=== PATIENT | female | born 1990 | race American Indian/Alaskan Native ===

== ENCOUNTER 2018-11-06 15:40 | Emergency (ER) | payer SELFPAY ==
[2018-11-06 15:53] VITALS: BP 148/79
--- NOTE | 2018-11-06 17:16 | Emergency Department Report ---
ED Female HPI - General Chief complaint: Urogenital-Female Stated complaint: VAGINAL DISCHARGE Time Seen by Provider: 11/06/18 16:53 Source: patient Mode of arrival: Ambulatory Limitations: No Limitations - History of Present Illness Initial comments: This is a 28-year-old female presents to the complaining of malodorous vaginal discharge has been going on for about 2 weeks. Patient states the past couple of days her vaginal discharge has gotten worse, she describes it as yellow, thick with vaginal itching. She states last menstrual period was October 17 2018. Patient reports being sexually active. She denies pelvic pain, fever, nausea vomiting, abdominal pain, dysuria MD Complaint: vaginal discharge -: Gradual, week(s) (2) Location: labia Severity: moderate Severity scale (0 -10): 5 Are you Now?: No Last Menstrual Period: 10/17/18 EDC: 07/24/19 Associated Symptoms: vaginal discharge. denies: abdominal pain, nausea/vomiting, dysuria, rash - Related Data Previous Rx's Medication Instructions Recorded Last Taken Type Fluconazole [Diflucan] 150 mg PO ONCE #1 tablet 11/06/18 Unknown Rx Allergies Allergy/AdvReac Type Severity Reaction Status Date / Time No Known Allergies Allergy Unverified 11/06/18 15:53 ED Review of Systems ROS: Stated complaint: VAGINAL DISCHARGE Other details as noted in HPI Comment: All other systems reviewed and negative ED Past Medical Hx - Past Medical History Previous Medical History?: No - Surgical History Past Surgical History?: No - Social History Smoking Status: Current Every Day Smoker Substance Use Type: Marijuana - Medications Home Medications: Home Medications Medication Instructions Recorded Confirmed Last Taken Type Fluconazole [Diflucan] 150 mg PO ONCE #1 tablet 11/06/18 Unknown Rx ED Physical Exam - General Limitations: No Limitations General appearance: alert, in no apparent distress - Head Head exam: Present: atraumatic, normocephalic - Eye Eye exam: Present: normal appearance - ENT ENT exam: Present: mucous membranes moist - Neck Neck exam: Present: normal inspection - Respiratory Respiratory exam: Present: normal lung sounds bilaterally. Absent: respiratory distress - Cardiovascular Cardiovascular Exam: Present: regular rate, normal rhythm. Absent: systolic murmur, diastolic murmur, rubs, gallop - GI/Abdominal GI/Abdominal exam: Present: soft, normal bowel sounds. Absent: distended, tenderness, guarding - External exam: Present: normal external exam. Absent: erythema, swelling Speculum exam: Present: vaginal discharge (malodorous, green), cervical discharge Bi-manual exam: Absent: cervical motion tendernes, adnexal tenderness, uterine enlargement, uterine tenderness - Extremities Exam Extremities exam: Present: normal inspection - Back Exam Back exam: Present: normal inspection - Neurological Exam Neurological exam: Present: alert, oriented X3 - Psychiatric Psychiatric exam: Present: normal affect, normal mood - Skin Skin exam: Present: warm, dry, intact, normal color. Absent: rash ED Course Vital Signs 11/06/18 15:49 Temperature 97.8 F Pulse Rate 94 H Respiratory 16 Rate Blood Pressure 148/79 O2 Sat by Pulse 97 Oximetry ED Medical Decision Making - Medical Decision Making 28-year-old male presents with STD . ED course: Urinalysis and gonorrhea and Chlamydia cultures obtained. Urinalysis positive for leukorrhea Patient received 250 mg of Rocephin, azithromycin 1 g, Flagyl 2 g. Wet prep positive for trichomoniasis Discussed with patient STD due to exposure. Discussed with patient findings and treatment Discussed prophylaxis treatment patient is to abstain from sex 7-10 days as treatment. Discussed patient partner knowledge and treatment. Discussed the follow-up with the health department for further STD testing. Patient's alert and oriented times 3. Vital signs are normal patient is in no acute discharge. Patient will be discharged home with instructions. Critical care attestation.: If time is entered above; I have spent that time in minutes in the direct care of this critically ill patient, excluding procedure time. ED Disposition Clinical Impression: Trichomonal vaginitis, Vaginitis Disposition: -01 TO HOME OR SELFCARE Is pt being admited?: No Does the pt Need Aspirin: No Condition: Stable Instructions: Sexually Transmitted Diseases (ED), Safe Sex (ED), Trichomoniasis (ED), Bacterial Vaginosis (ED) Additional Instructions: Make sure to follow up with the primary care physician as discussed. Take all your medications as you've been prescribed. If you have any worsening symptoms or develop new symptoms please return to ED immediately. Prescriptions: Fluconazole [Diflucan] 150 mg PO ONCE #1 tablet Forms: Work/School Release Form(ED) Time of Disposition: 18:53
[2018-11-06 18:14] LABS: Bilirubin,Urine NEG (Negative); Blood,Urine SM (Negative); Color,Urine Yellow (Yellow); Mucus,Urine 1+ /HPF; Protein,Urine <15 mg/dL mg/dL (Negative)
[2018-11-06 18:29] LABS: HCG Qualitative,Urine Negative (Negative)
[2018-11-06] MEDS ORDERED: ZITHROMAX PO ONE (18:36)
[2018-11-06] MEDS ORDERED: ROCEPHIN IM ONE (18:36)
[2018-11-06] MEDS ORDERED: FLAGYL PO ONE (18:36)
[2018-11-06] MEDS ORDERED: XYLOCAINE 1% MPF 5 mL INFILTRATI ONE (18:36)
== END 2018-11-06 20:02 | disposition home or self-care (01) ==
LOC: ED 15:40
DX: A59.01 Trichomonal vulvovaginitis (principal); N76.0 Acute vaginitis; F17.200 Nicotine dependence, unspecified, uncomplicated; F12.10 Cannabis abuse, uncomplicated
CPT/HCPCS: 81001; 81025; 87210; 87591; 96372; 99284; J0696

== ENCOUNTER 2018-12-23 10:39 | Emergency (ER) | payer BC, OTHER ==
--- NOTE | 2018-12-23 11:56 | Emergency Department Report ---
ED Dysuria HPI - HPI Chief Complaint: Urogenital-Female Stated Complaint: VAGINAL ITCHING Time Seen by Provider: 12/23/18 11:56 Duration: 5 Days Severity: Mild Symptoms: Dysuria: Yes, Frequency: No, Suprapubic Pain: No, Flank Pain: No, Fever: No, Hematuria: No, Abdominal Pain: No, Previous UTI's: No Other History: Patient is a 28-year-old -Stateless female who comes to the ER today complaining of vaginal itching. However, upon further review of her H&P she states that she was treated for trichomoniasis and gonorrhea last month but has not really gone better. She did not follow up with her CREDIT INVESTIGATOR. Patient has no abdominal pain. She is walking without difficulty. She has no fever. Patient also states that she is concerned that she may be because her period is 3 days late. Past medical history. Gonorrhea/Trichomonas. Obesity. Home medications none. Patient does state that she finished her course of Diflucan and Flagyl given at the last visit ED Review of Systems ROS: Stated complaint: VAGINAL ITCHING Other details as noted in HPI Comment: All other systems reviewed and negative Constitutional: denies: chills Eyes: denies: eye pain ENT: denies: ear pain Respiratory: denies: see HPI Cardiovascular: denies: dyspnea on exertion Endocrine: denies: excessive sweating Gastrointestinal: denies: abdominal pain Genitourinary: as per HPI, discharge, abnormal menses. denies: urgency, dysuria Musculoskeletal: denies: back pain Skin: denies: rash Neurological: denies: headache Psychiatric: denies: anxiety Hematological/Lymphatic: denies: easy bleeding ED Past Medical Hx - Past Medical History Previous Medical History?: No - Surgical History Past Surgical History?: No - Family History Family history: no significant - Social History Smoking Status: Never Smoker Substance Use Type: None - Medications Home Medications: Home Medications Medication Instructions Recorded Confirmed Last Taken Type Fluconazole [Diflucan] 200 mg PO DAILY #3 tablet 12/23/18 Unknown Rx metroNIDAZOLE [Flagyl] 500 mg PO Q12HR #20 tab 12/23/18 Unknown Rx Dysuria Exam - Exam General: Vital signs noted. No distress. Alert and acting appropriately. Exam: Yes Moist Mucous Membranes, No CVA Tenderness, No Abdominal Tenderness, No Rigidity or Guarding ED Course Vital Signs 12/23/18 10:58 Temperature 98.8 F Pulse Rate 72 Respiratory 20 Rate Blood Pressure 118/67 O2 Sat by Pulse 100 Oximetry ED Medical Decision Making - Medical Decision Making recent gonorrhea and trich states she took pills as given continued vag dc pt is not forthcoming with info labs noted empiric treatment with follow up rocephin, azithro, flagyl, diflucan Vital Signs 12/23/18 10:58 Temperature 98.8 F Pulse Rate 72 Respiratory 20 Rate Blood Pressure 118/67 O2 Sat by Pulse 100 Oximetry Labs 12/23/18 11:40 Urine Color Yellow Urine Turbidity Slightly-cloudy Urine pH 6.0 Ur Specific [place] 1.024 Urine Protein <15 mg/dl Urine Glucose (UA) Neg Urine Ketones Neg Urine Blood Sm Urine Nitrite Neg Urine Bilirubin Neg Urine Urobilinogen 2.0 Ur Leukocyte Esterase Lg Urine WBC (Auto) 12.0 H Urine RBC (Auto) 35.0 U Epithel Cells (Auto) 9.0 Urine Bacteria (Auto) 1+ Urine Mucus Few Urine HCG, Qual Negative - Differential Diagnosis ro uti/preg/std Critical care attestation.: If time is entered above; I have spent that time in minutes in the direct care of this critically ill patient, excluding procedure time. ED Disposition Clinical Impression: STI (sexually transmitted infection), Trichomonosis, Bacterial vaginitis, Vaginal yeast infection Disposition: DC-01 TO HOME OR SELFCARE Is pt being admited?: No Does the pt Need Aspirin: No Condition: Stable Instructions: Safe Sex (ED) Additional Instructions: safe sex given recurrent STD you need to see OB bisi referral below take with you your medical records given today and last month hydrate well with water eat yogurt daily Referrals: CHERIE SARAH MD [Primary Care Provider] - 3-5 Days TALON WARREN MD [Staff Physician] - 3-5 Days Forms: STI Treatment and Prevention Time of Disposition: 13:50
[2018-12-23 12:15] LABS: Bacteria,Urine 1+ /HPF (Negative); Bilirubin,Urine NEG (Negative); Blood,Urine SM (Negative); Color,Urine Yellow (Yellow); Mucus,Urine FEW /HPF; Protein,Urine <15 mg/dL mg/dL (Negative)
[2018-12-23 12:23] LABS: HCG Qualitative,Urine Negative (Negative)
[2018-12-23] MEDS ORDERED: XYLOCAINE 1% MPF 5 mL INFILTRATI ONE (13:45)
[2018-12-23] MEDS ORDERED: ZITHROMAX PO ONE (13:45)
[2018-12-23] MEDS ORDERED: ROCEPHIN IM ONE (13:45)
[2018-12-23 14:20] VITALS: BP 113/68
== END 2018-12-23 14:18 | disposition home or self-care (01) ==
LOC: ED 10:39
DX: N76.0 Acute vaginitis (principal); B37.3 Candidiasis of vulva and vagina; A59.01 Trichomonal vulvovaginitis; B33.8 Other specified viral diseases
CPT/HCPCS: 81001; 81025; 87210; 87591; 96372; 99284; J0696

== ENCOUNTER 2019-07-03 02:30 | Emergency (ER) | payer BC ==
[2019-07-03 02:36] VITALS: BP 126/87
--- NOTE | 2019-07-03 03:13 | XRay Report ---
XR foot 3+V RT INDICATION / CLINICAL INFORMATION: Right foot pain. COMPARISON: None available. FINDINGS: BONES/JOINT(S): No acute fracture or subluxation. No significant degenerative changes. SOFT TISSUES: No significant abnormality. ADDITIONAL FINDINGS: None. Signer Name: Kaz Ching MD Signed: 07/03/2019 3:08 AM Workstation Name: [id number]
[2019-07-03] MEDS ORDERED: ACETAMINOPHEN W/CODEINE 300-30 MG TAB PO ONE (03:19)
--- NOTE | 2019-07-03 03:46 | Emergency Department Report ---
ED Lower Extremity HPI - General Chief Complaint: Extremity Injury, Lower Stated Complaint: RIGHT HEEL PAIN Time Seen by Provider: 07/03/19 03:18 Source: patient Mode of arrival: Ambulatory Limitations: No Limitations - History of Present Illness Initial Comments: This is a 29-year-old female nontoxic, well nourished in appearance, no acute signs of distress presents to the ED with c/o of intermittent right heal pain 2 weeks. Patient stated that she has been walking a lot. Patient denies any other trauma. Patient denies any numbness, tingling, fever, chills, nausea, vomiting, chest pain, shortness of breath, headache, stiff neck. Patient denies any joint swelling or joint redness. Patient denies decreased range of motion. Patient stated has decreased gait due to pain. Patient denies any allergies or significant past medical history. MD Complaint: foot injury -: week(s) (2) Injury: Foot: Right Severity: mild Severity scale (0 -10): 8 Improves With: immobilization Worsens With: weight bearing, palpation Associated Symptoms: able to partially bear weight, ambulatory. denies: snap/pop sensation, swelling, numbness, tingling, unable to bear weight - Related Data Previous Rx's Medication Instructions Recorded Last Taken Type Fluconazole [Diflucan] 200 mg PO DAILY #3 tablet 12/23/18 Unknown Rx metroNIDAZOLE [Flagyl] 500 mg PO Q12HR #20 tab 12/23/18 Unknown Rx Naproxen [Naprosyn TAB] 500 mg PO BID PRN #20 tablet 07/03/19 Unknown Rx Allergies Allergy/AdvReac Type Severity Reaction Status Date / Time No Known Allergies Allergy Unverified 11/06/18 15:53 ED Review of Systems ROS: Stated complaint: RIGHT HEEL PAIN Other details as noted in HPI Constitutional: denies: chills, fever Eyes: denies: eye pain, eye discharge, vision change ENT: denies: ear pain, throat pain Respiratory: denies: cough, shortness of breath, wheezing Cardiovascular: denies: chest pain, palpitations Endocrine: no symptoms reported Gastrointestinal: denies: abdominal pain, nausea, diarrhea Genitourinary: denies: urgency, dysuria, discharge Musculoskeletal: denies: back pain, joint swelling, arthralgia Skin: denies: rash, lesions Neurological: denies: headache, weakness, paresthesias Psychiatric: denies: anxiety, depression Hematological/Lymphatic: denies: easy bleeding, easy bruising ED Past Medical Hx - Past Medical History Previous Medical History?: No - Surgical History Past Surgical History?: No - Social History Smoking Status: Current Every Day Smoker Substance Use Type: Marijuana - Medications Home Medications: Home Medications Medication Instructions Recorded Confirmed Last Taken Type Fluconazole [Diflucan] 200 mg PO DAILY #3 tablet 12/23/18 Unknown Rx metroNIDAZOLE [Flagyl] 500 mg PO Q12HR #20 tab 12/23/18 Unknown Rx Naproxen [Naprosyn TAB] 500 mg PO BID PRN #20 tablet 07/03/19 Unknown Rx ED Physical Exam - General Limitations: No Limitations General appearance: alert, in no apparent distress - Head Head exam: Present: atraumatic, normocephalic - Extremities Exam Extremities exam: Present: normal inspection, full ROM, tenderness, normal capillary refill. Absent: joint swelling - Expanded Lower Extremity Exam Right Hip exam: Present: normal inspection, full ROM. Absent: tenderness, swelling Upper Leg exam: Present: normal inspection, full ROM. Absent: tenderness, swelling Knee exam: Present: normal inspection, full ROM. Absent: tenderness, swelling Lower Leg exam: Present: normal inspection, full ROM. Absent: tenderness, sw elling Ankle exam: Present: normal inspection, full ROM. Absent: tenderness, swelling, abrasion, laceration, ecchymosis, deformity, crepidus, dislocation, erythema, anterior draw sign Foot/Toe exam: Present: normal inspection, full ROM, tenderness. Absent: swelling, abrasion, laceration, ecchymosis, deformity, crepidus, dislocation, erythema, amputation, puncture wound, foreign body, calcaneal tenderness, tenderness at base of 5th metatarsal, nail avulsion, subungual hematoma Neuro vascular tendon exam: Present: no vascular compromise Gait: Positive: observed and limited by pain 1 - pain here - Back Exam Back exam: Present: normal inspection, full ROM - Neurological Exam Neurological exam: Present: alert, oriented X3, normal gait - Psychiatric Psychiatric exam: Present: normal affect, normal mood - Skin Skin exam: Present: warm, dry, intact, normal color. Absent: rash ED Course Vital Signs 07/03/19 02:34 Temperature 98.3 F Pulse Rate 80 Respiratory 20 Rate Blood Pressure 126/87 O2 Sat by Pulse 100 Oximetry - Reevaluation(s) Reevaluation #1: 07/03/19 03:48 Patient is speaking in full sentences with no signs of distress noted. ED Lower Extremity MDM - Medical Decision Making This is a 29-year-old female that presents with right plantar fasciitis. Patient is stable and was examined by me. I referred patient to an orthopedic doctor for further evaluation for possible MRI. X-ray has been obtained and dictated by the radiologist. Patient is notified of the x-ray report with noted by the patient. Patient does have normal gait with no tenderness and no joint swelling. No ecchymosis. no joint redness or swelling. Not warm to touch. No signs of cellulites present. Patient was instructed to buy a roller OTC for plantar fasciitis. Patient was instructed to RICE therapy. Patient received Tylenol with Codeine for pain and stated that felt member will drop patient home after discharge due to possible drowsiness. Patient is discharged with naproxen. At time of discharge, the patient does not seem toxic or ill in appearance. No acute signs of distress noted. Patient agrees to discharge treatment plan of care. No further questions noted by the patient. Critical care attestation.: If time is entered above; I have spent that time in minutes in the direct care of this critically ill patient, excluding procedure time. ED Disposition Clinical Impression: Plantar fasciitis of right foot Disposition: DC-01 TO HOME OR SELFCARE Is pt being admited?: No Does the pt Need Aspirin: No Condition: Stable Instructions: Plantar Fasciitis (ED), RICE Therapy (ED) Additional Instructions: Follow-up with a orthopedic doctor in 3-5 days or if symptoms worsen and continue return to emergency room as soon as possible. Prescriptions: Naproxen [Naprosyn TAB] 500 mg PO BID PRN #20 tablet PRN Reason: Pain , Severe (7-10) Referrals: PRIMARY CAREMD [Primary Care Provider] - 3-5 Days KATELYNN DAY MD [Staff Physician] - 3-5 Days [facility] [Outside] - 3-5 Days Forms: Work/School Release Form(ED)
== END 2019-07-03 04:05 | disposition home or self-care (01) ==
LOC: ED 02:30
DX: M72.2 Plantar fascial fibromatosis (principal); F17.200 Nicotine dependence, unspecified, uncomplicated